=== PATIENT | male | born 2000 | race African-American/Black ===

== ENCOUNTER 2024-03-11 08:56 | Emergency (ER) | payer OTHER ==
[~2024-03-11] VITALS: Ht 190.5 cm; Wt 116.0 kg
[2024-03-11 09:13] VITALS: BP 179/84; TEMP 98.1; O2SAT 98
[2024-03-11] MEDS: MAGNESIUM CITRATE 300ML BTL PO ONE (12:06)
[2024-03-11] MEDS ORDERED: MIRA3350 PO (12:51)
== END 2024-03-11 15:39 | disposition home or self-care (01) ==
LOC: M ED 08:56
DX: K59.00 Constipation, unspecified (principal); Z79.899 Other long term (current) drug therapy